=== PATIENT | male | born 1955 | race Caucasian/White ===

== ENCOUNTER 2016-09-15 13:44 | Emergency (ER) | payer OTHER ==
[2016-09-15] MEDS ORDERED: Ibuprofen 200 MG TAB ONE (14:32)
--- NOTE | 2016-09-15 14:40 | CT ---
CT HEAD NONCONTRAST: HISTORY: Fall. Headache. FINDINGS: No comparison. There is no evidence of acute intracranial hemorrhage or infarct. 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 There is no mass effect or shift of midline structures. No depressed skull fractures are apparent. Visualized paranasal sinuses remain well ae rated. IMPRESSION: No acute intracranial abnormalities are demonstrated on noncontrast CT head. POS: [facility]
--- NOTE | 2016-09-15 14:47 | CT ---
CT CERVICAL SPINE NONCONTRAST: History Fall. neck injury. FINDINGS: Vertebral body heights and alignment are maintained. Cervicothoracic junction is intact. There is osteophytosis throughout the vertebral bodies and facets. No acute fracture or dislocation are evid ent. IMPRESSION: Mild cervical spondylosis. No acute osseous abnormalities are demonstrated. POS: [facility]
== END 2016-09-15 14:40 | disposition home or self-care (01) ==
LOC: NAV ERS 13:44
DX: S06.0X0A Concussion without loss of consciousness, initial encounter (principal); F17.210 Nicotine dependence, cigarettes, uncomplicated; Z79.82 Long term (current) use of aspirin; Z79.899 Other long term (current) drug therapy; W22.03XA Walked into furniture, initial encounter
CPT/HCPCS: 70450; 72125

== ENCOUNTER 2016-09-16 12:01 | Outpatient (CLI) | payer OTHER ==
[2016-09-16 13:05] LABS: #Basophils 0.1 thou/uL (0.0-0.2); #Eosinphils 0.1 thou/uL (0.0-0.7); #Monocytes 0.4 thou/uL (0.11-0.59); #Neutrophils 2.9 thou/uL (1.40-6.50); %Eosinophils 2.5 % (0.0-10.0); %Monocytes 7.3 % (0.0-10.0); %Neutrophils 52.3 % (42.0-75.0); Hemoglobin 15.2 g/dL (14.0-18.0); Mean Corpuscular HGB CONC 31.7 g/dL (32.0-36.0); Mean Corpuscular Hemoglobin 29.3 pg (27.0-31.0); Mean Corpuscular Volume 92.3 fl (80.0-94.0); Mean Platelet Volume 7.8 fL (7.4-10.4); Platelet Count 263 thou/uL (130-400); RBC Distribution Width 13.4 % (11.5-14.5); Red Blood Cell (RBC) Count 5.19 mill/uL (4.70-6.10); White Blood Cell (WBC) Count 5.5 thou/uL (4.8-10.8)
[2016-09-16 13:24] LABS: Hemoglobin A1c 5.5 % (4.0-6.0)
[2016-09-16 13:45] LABS: Anion Gap 16 mmol/L (10-20); BUN (Urea Nitrogen) 15 mg/dL (8.4-25.7); Calc. Creatinine Clearance 0 mL/min (70-130); Carbon Dioxide 21 mmol/L (22-29); Chloride 107 mmol/L (98-107); Estimated GFR-MDRD 68; Potassium 5.3 mmol/L (3.5-5.1); Sodium 139 mmol/L (136-145)
[2016-09-16 13:46] LABS: ALT (SGPT) 29 U/L (0-55); AST (SGOT) 21 U/L (5-34); Albumin 4.4 g/dL (3.5-5.0); Alkaline Phosphatase 77 U/L (40-150); Bilirubin, Direct 0.1 mg/dL (0.1-0.3); Bilirubin, Total 0.3 mg/dL (0.2-1.2); Calcium 9.4 mg/dL (7.8-10.44); Cardiac Risk 5.3 (Less than 4.5); Cholesterol 235 mg/dL (< 200 Desired); Glucose 90 mg/dL (70-105); HDL Cholesterol 44 mg/dL (>60 Neg Risk); LDL Cholesterol, Calculated 164 mg/dL; Protein, Total 7.3 g/dL (6.0-8.3); Triglycerides 133 mg/dL (Less than 150)
== END 2016-09-16 12:02 | disposition home or self-care (01) ==
LOC: NAVSJIPCSP 12:01
PROVIDERS: ATTEND Family Medicine
DX: Z12.5 Encounter for screening for malignant neoplasm of prostate (principal); E78.00 Pure hypercholesterolemia, unspecified; I10 Essential (primary) hypertension; J30.9 Allergic rhinitis, unspecified; Z87.898 Personal history of other specified conditions; Z79.899 Other long term (current) drug therapy
CPT/HCPCS: 36415; 80048; 80061; 80076; 83036; 84403; 84443; 85025

== ENCOUNTER 2016-12-24 17:09 | Outpatient (CLI) | payer OTHER ==
[2016-12-24 17:52] LABS: Anion Gap 15 mmol/L (10-20); BUN (Urea Nitrogen) 15 mg/dL (8.4-25.7); Calc. Creatinine Clearance 0 mL/min (70-130); Calcium 9.7 mg/dL (7.8-10.44); Carbon Dioxide 22 mmol/L (22-29); Chloride 103 mmol/L (98-107); Estimated GFR-MDRD 62; Glucose 92 mg/dL (70-105); Potassium 4.3 mmol/L (3.5-5.1); Sodium 136 mmol/L (136-145)
--- NOTE | 2016-12-24 19:56 | RAD ---
TWO VIEWS OF THE CHEST 12/24/16 COMPARISON: 01/19/15 HISTORY: Congestive heart failure. FINDINGS: Two views of the chest show normal sized cardiomediastinal silhouette. There is no evidence of conso lidation, mass, or pleural effusion. The bones are unremarkable. IMPRESSION: No evidence of acute cardiopulmonary disease. POS: [facility]
== END 2016-12-24 17:10 | disposition home or self-care (01) ==
LOC: NAV LAB 17:09
PROVIDERS: ATTEND Family Medicine
DX: I50.9 Heart failure, unspecified (principal)
CPT/HCPCS: 36415; 71020; 80048; 83880

== ENCOUNTER 2016-12-25 12:40 | Outpatient (CLI) | payer OTHER | END 2016-12-25 12:41 | disposition home or self-care (01) | LOC: NAV ULT 12:40 | PROVIDERS: ATTEND Family Medicine | DX: I50.9 Heart failure, unspecified (principal) | CPT/HCPCS: 93306 ==

== ENCOUNTER 2019-10-27 14:20 | Outpatient (CLI) | payer OTHER ==
--- NOTE | 2019-10-27 14:45 | RAD ---
Exam:Right shoulder 3 views HISTORY: Right shoulder pain COMPARISON: None FINDINGS: Minimal joint spaces preserved. No fracture or dislocation. Mild degenerative change in the acromioclavicular joint space. IMPRESSION: No fracture or dislocation. Mild degenerative change in the acromioclavicular joint space .
== END 2019-10-27 14:21 | disposition home or self-care (01) ==
LOC: NAV RAD 14:20
PROVIDERS: ATTEND Family Medicine
DX: M25.511 Pain in right shoulder (principal); M19.011 Primary osteoarthritis, right shoulder